=== PATIENT | male | born 1950 | race Caucasian/White ===

== ENCOUNTER 2017-11-09 14:14 | Emergency (ER) | payer OTHER ==
[~2017-11-09] VITALS: Ht 172.7 cm; Wt 90.7 kg
[2017-11-09] MEDS ORDERED: CLARITIN10 M2 PO (14:35)
[2017-11-09] MEDS ORDERED: NORCO 5-325 TA1 EACH PO (15:35)
== END 2017-11-09 15:50 | disposition home or self-care (01) ==
LOC: ED 14:14
PROC: 2W3NX1Z Immobilization of Right Upper Leg using Splint (ICD-10-PCS; principal; 2017-11-09)
DX: S76.111A Strain of right quadriceps muscle, fascia and tendon, initial encounter (principal); Z88.1 Allergy status to other antibiotic agents; W19.XXXA Unspecified fall, initial encounter
CPT/HCPCS: 29505; 73560; 96374; 99283; J1170

== ENCOUNTER 2017-11-19 05:45 | Day surgery (SDC) | payer OTHER ==
[~2017-11-19] VITALS: Ht 172.7 cm; Wt 90.7 kg
[~2017-11-19 05:45] MED LIST: CLARITIN10 M2 PO; NORCO 5-325 TA1 EACH PO
[2017-11-19] MEDS ORDERED: OXYCODONE HCL5 MG PO (08:13)
[2017-11-19] MEDS ORDERED: NEURONTIN300 MG PO (08:14)
--- NOTE | 2017-11-19 08:39 | NUR ---
11/19/17 0839 Naomi Meier 0807 PT ARRIVED WITH ORAL AIRWAY IN PLACE, RESP EVEN AND UNLABORED. PT NON AROUSABLE. O2 MASK ON AT 8L 0814 PT WOKE UP TO TACTILE STIMULI AND ORAL AIRWAY WAS REMOVED. O2 DECREASED TO 6L VIA MASK. PT BACK TO SLEEP. PT REPORTS NO NUMBNESS IN RIGHT FOOT. 0822 PT WOKE UP TO VERBAL STIMULI AND O2 WAS REMOVED. O2 SAT 100%. CYRO CUFF AND RIGHT LEG ELEVATED. PT DENIES PAIN AND NAUSEA. PT MORE AWAKE AND REPORTS RIGHT FOOT IS NUMB.
--- NOTE | 2017-11-19 09:29 | NUR ---
voids 350mls yellow urine per urinal.
[2017-11-19] MEDS ORDERED: PERCOCET 5-3251 EACH PO (09:50)
--- NOTE | 2017-11-26 07:14 | OR ---
[facility] [address] [place], [place] [address] Signed DATE OF OPERATION: 11/19/2017 SURGEON: Mirlande Alicea MD PREOPERATIVE DIAGNOSIS: Right quad tendon rupture. POSTOPERATIVE DIAGNOSIS: Right quad tendon rupture. PROCEDURE PERFORMED: Right quad tendon repair. ANESTHESIA: General. MOLD MAKING SUPERVISOR: Radha Grey PA-C. Radha was present in critical positioning, retraction, and wound closure. TOURNIQUET TIME: 25 minutes. BRIEF HISTORY: Eliseo is a 66-year-old gentleman who suffered an injury to his leg and ruptured his quad tendon. Ultrasound confirmed this. Risks and benefits of operative repair were discussed with him and he elected to proceed. DESCRIPTION OF PROCEDURE: Once consent was obtained, he was taken to the operating room. After adequate anesthesia, he was placed on the operating room table. All downside pressure points were well padded. A well-padded proximal thigh tourniquet was placed. The leg was then prepped and draped in a standard sterile fashion and exsanguinated using an Esmarch bandage. Tourniquet inflated to 275 mmHg. Standard anterior approach through a straight incision was taken through skin and subcutaneous tissue and down to the quad tendon. The rupture was quite easily identified. Subcutaneous flaps were developed mediolaterally. The soft tissue and scar tissue on the patella were removed sharply down to bleeding bony base. The distal end of the tendon was then sharply debrided and any loose or necrotic tissue was removed. The patella was noted to be completely intact. Using a #5 FiberWire suture, we did a running Krackow stitch placing four Electronically Signed By: MIRLANDE ALICEA MD 11/26/17 0714 PATIENT NAME: ELISEO JOLLY OPERATIVE REPORT DATE OF : 50 REPORT #: [id number] PHYSICIAN: MIRLANDE ALICEA MD PCP: ANALISA SARGENT MD REPORT IS CONFIDENTIAL AND NOT TO BE RELEASED WITHOUT AUTHORIZATION [facility] [address] [place], [place] [address] Signed stitches in the tendon itself tendon. Three drill holes were placed in the patella, center drill hole, one lateral and one medial. Using a suture shuttle, the suture ends were shuttled through the drill holes and brought out the bottom. The tendon was then tied snugly to the top of the patella. The retinacular disruption and peritenon were then all repaired using #2 FiberWire suture with an excellent repair obtained. Up to 60 degrees, there was no motion at the repair site. The suture ends distally were then tied to each other and cut and welded with the cautery. The wound was copiously irrigated with antibiotic solution and closed with 0 Stratafix and violeta. The wound was dressed with Mepilex Ag dressing, ABD and Kailash wrap. He was placed back into his hinged knee brace at 0 and 30 degrees. He will be toe-touch weightbearing. Continue this for another six weeks. He was taken to the recovery room in satisfactory condition. All sponge, needle, and instrument counts were correct. Mirlande Alicea MD BA/MODL /[id number] Copies: ~ Electronically Signed By: MIRLANDE ALICEA MD 11/26/17 0714 PATIENT NAME: ELISEO JOLLY OPERATIVE REPORT DATE OF : 50 REPORT #: [id number] PHYSICIAN: MIRLANDE ALICEA MD PCP: ANALISA SARGENT MD REPORT IS CONFIDENTIAL AND NOT TO BE RELEASED WITHOUT AUTHORIZATION
== END 2017-11-19 11:05 | disposition home or self-care (01) ==
LOC: DS 05:45 → OPS 05:45 → DS 06:45 → OPS 11:05
PROVIDERS: Specialist
PROC: 0LQL0ZZ Repair Right Upper Leg Tendon, Open Approach (ICD-10-PCS; principal; 2017-11-19 06:45)
DX: S76.111A Strain of right quadriceps muscle, fascia and tendon, initial encounter (principal); I10 Essential (primary) hypertension; E78.5 Hyperlipidemia, unspecified; X58.XXXA Exposure to other specified factors, initial encounter
CPT/HCPCS: 01250; 64447; 76942; J0690; J1100; J1885; J2250; J2405; J2704; J2795; J3010; J7120

== ENCOUNTER 2019-11-27 07:00 | Day surgery (SDC) | payer OTHER ==
[~2019-11-27] VITALS: Ht 172.7 cm; Wt 89.4 kg
[~2019-11-27 07:00] MED LIST changes: +FLOMAX0.4 MG PO; +NEURONTIN300 MG PO; +OXYCODONE HCL5 MG PO; +PERCOCET 5-3251 EACH PO
--- NOTE | 2019-11-27 08:57 | NUR ---
11/27/19 0857 Omar Gao DOES NOT RESPOND TO TAP AND VOICE ON ENTRY TO PACU. RESPONSIVE BY 0855 BUT CANNOT STAY AWAKE LONG ENOUGH TO ANSWER QUESTIONS.
--- NOTE | 2019-11-27 10:24 | OR ---
[facility] [address] [place], [place] [address] Signed DATE OF OPERATION: 11/27/2019 SURGEON: Sebastian Ochoa MD PREOPERATIVE DIAGNOSES: 1. Screening. 2. Diverticulosis. POSTOPERATIVE DIAGNOSES: 1. Minimal sigmoid diverticulosis. 2. Small to moderate sized internal anal skin tag x1. 3. A 4 mm polyp at 85 cm (distal transverse colon). PROCEDURE: Colonoscopy without biopsy. ESTIMATED BLOOD LOSS: None. INDICATIONS: Eliseo is a 68-year-old gentleman, who underwent a screening colonoscopy back in 2008. He had minimal sigmoid diverticulosis. He has no lower GI complaints currently. There is no family history of colon cancer or polyps. I gave him a pamphlet on colonoscopy. We looked at that together along with the risks including, but not limited to gas bloating, crampy abdominal pain, bleeding, perforation requiring surgery, and missed diagnosis. We also discussed the need for IV conscious sedation. He had expressed understanding and wished to proceed. DESCRIPTION OF PROCEDURE: Eliseo was taken into our endoscopy suite and placed in the left lateral decubitus position. He was given 8 mg of Versed and 175 mcg of fentanyl. A digital rectal exam was performed and he does have a moderately indurated and moderately enlarged prostate gland. The adult colonoscope was introduced and advanced under direct visualization of the camera. He took a little extra sedation and abdominal compression in order to advance the scope directly into the cecum itself. We could easily see the appendiceal orifice and the ileocecal valve. His prep was excellent. The scope was slowly withdrawn. We did see a polypoid lesion back at 85 cm. It was easily removed with the help of hot biopsy forceps. He had just a few diverticula in the sigmoid colon. They were minimal to moderate in size, minimal in number and scattered about. The rectum was unremarkable. Upon retroflexion of scope, he has a single internal anal skin tag. Electronically Signed By: SEBASTIAN OCHOA MD 11/27/19 1024 PATIENT NAME: ELISEO JOLLY OPERATIVE REPORT DATE OF : 50 REPORT #: [id number] PHYSICIAN: SEBASTIAN OCHOA MD PCP: ANALISA SARGENT MD REPORT IS CONFIDENTIAL AND NOT TO BE RELEASED WITHOUT AUTHORIZATION [facility] [address] [place], [place] [address] Signed After this, the gas was suctioned out and the colonoscope removed. Eliseo tolerated procedure quite well. RECOMMENDATIONS: I will see Eliseo back in my office in 7 to 14 days to review his results. Sebastian Ochoa MD ALB/MODL /[id number] cc: MD Analisa Ferrari MD Copies: SEBASTIAN OCHOA MD, RUSSELL BARR MD ~ Electronically Signed By: SEBASTIAN OCHOA MD 11/27/19 1024 PATIENT NAME: ELISEO JOLLY OPERATIVE REPORT DATE OF : 50 REPORT #: [id number] PHYSICIAN: SEBASTIAN OCHOA MD PCP: ANALISA SARGENT MD REPORT IS CONFIDENTIAL AND NOT TO BE RELEASED WITHOUT AUTHORIZATION
--- NOTE | 2019-11-28 15:00 | PATH ---
[facility] [address] [place], [place] [address] Signed SPECIMEN(S): A DISTAL TRANSVERSE POLYP SPECIMEN SOURCE: A. DISTAL TRANSVERSE POLYP CLINICAL HISTORY: Surveillance colonoscopy, last colonoscopy in 2008, history of diverticulosis. MICROSCOPIC DESCRIPTION: Histologic sections of all submitted blocks are examined by light microscopy. These findings, together with the gross examination, support the pathologic diagnosis. FINAL PATHOLOGIC DIAGNOSIS: Colon, distal transverse, polyp, polypectomy: - Colonic mucosa with cautery artifact, see comment. - Negative for high-grade dysplasia or malignancy. COMMENT: Multiple additional deeper levels are examined. The extent of cautery artifact present precludes definitive evaluation for focal low-grade dysplasia. Clinical correlation is required. NAL:caw:C GROSS DESCRIPTION: The specimen, labeled "KP, 1," and designated on the requisition "distal transverse," is received in formalin and consists of one miller soft tissue fragment that measures 0.3 cm in greatest dimension. The specimen is entirely submitted in cassette (A1). AT (under the direct supervision of a pathologist) The Gross Description was prepared using a voice recognition system. The report was reviewed for accuracy; however, sound-alike word errors, addition and/or deletions may occur. If there is any question about this report, please contact Client Services. PERFORMING LABORATORY: The technical component was performed by [address] [facility], [address] [place] [id number] (User Experience Architect: Susan Butt MD; CLIA# [id number]). [facility] [address] [address] (CLIA# [id number]). PATIENT NAME: SEMAJ JOLLY PATHOLOGY DATE OF : 50 REPORT #: [id number] PHYSICIAN: [facility] PCP: ANALISA SARGENT MD REPORT IS CONFIDENTIAL AND NOT TO BE RELEASED WITHOUT AUTHORIZATION [address], [place] [address] Signed Diagnostician: Mari Rose MD Pathologist Electronically Signed 11/28/2019 Copies: ~ PATIENT NAME: SEMAJ JOLLY PATHOLOGY DATE OF : 50 REPORT #: [id number] PHYSICIAN: [facility] PCP: ANALISA SARGENT MD REPORT IS CONFIDENTIAL AND NOT TO BE RELEASED WITHOUT AUTHORIZATION
== END 2019-11-27 10:00 | disposition home or self-care (01) ==
LOC: OPS 07:00 → DS 07:00 → OPS 08:15
PROVIDERS: Colon & Rectal Surgery
PROC: 0DBL8ZZ Excision of Transverse Colon, Via Natural or Artificial Opening Endoscopic (ICD-10-PCS; principal; 2019-11-27 08:15)
DX: Z12.11 Encounter for screening for malignant neoplasm of colon (principal); K64.8 Other hemorrhoids; K64.4 Residual hemorrhoidal skin tags; K57.30 Diverticulosis of large intestine without perforation or abscess without bleeding; I10 Essential (primary) hypertension; K21.9 Gastro-esophageal reflux disease without esophagitis; E78.5 Hyperlipidemia, unspecified; Z79.899 Other long term (current) drug therapy
CPT/HCPCS: 99153; G0500; J2250; J3010; J7121

== ENCOUNTER → 2022-12-26 | Emergency (ER) | payer OTHER ==
[~2022-12-26] VITALS: Ht 172.7 cm; Wt 89.4 kg
[~2022-12-26] MED LIST changes: +ATORVASTATIN CA20 MG PO; +LOSARTAN POTASS50 MG PO
[2022-12-26 18:59] VITALS: BP 130/77
== END ==
LOC: ED 12:38
DX: K42.9 Umbilical hernia without obstruction or gangrene (principal); Z88.8 Allergy status to other drugs, medicaments and biological substances; Z79.899 Other long term (current) drug therapy
CPT/HCPCS: 99283

== ENCOUNTER 2023-02-08 05:55 | Day surgery (SDC) | payer OTHER ==
[2023-01-31 08:18] VITALS: BP 148/82
[~2023-02-08] VITALS: Ht 172.7 cm; Wt 90.9 kg
[2023-02-08 06:14] VITALS: BP 156/84
[2023-02-08] MEDS ORDERED: TYLENOL EXTRA500 MG PO (06:19)
--- NOTE | 2023-02-08 07:22 | NUR ---
PT IN GOOD SPIRITS. CONSENTED TO PRAYER. PRAYED FOR SUCCESSFUL PROCEDURE AND AWARENESS OF DIVINE PRESENCE.
--- NOTE | 2023-02-08 08:47 | NUR ---
02/08/23 0847 Abena Alejandro 0836-PATIENT ARRIVED TO PACU ON 6L MASK RR EVEN. PATIENT REACTIVE TO VERBAL STIMULI SLIGHTLY OPENING EYES NOT FOLLOWING COMMANDS. PATIENT DOES HAVE SLEEP APNEA. DRESSING TO UMBILICAL SMALL AMT OF DRAINAGE ON SIDE. SR 0845-PATIENT AROUSES EASILY DROWSY DENIES PAIN OR NAUSEA. PLACED ON RA RR EVEN 100%.
[2023-02-08] MEDS ORDERED: HYDROCODON-ACE1 EA10 PO (08:50)
[2023-02-08] MEDS ORDERED: IBUPROFEN600 MG PO (08:50)
[2023-02-08] MEDS ORDERED: ACETAMINOPHEN500 MG PO (08:50)
[2023-02-08 09:07] VITALS: BP 147/70
--- NOTE | 2023-02-08 09:10 | NUR ---
LE 0910: PT IS BACK TO DS FROM PACU. HE IS BACK TO HIS BASELINE. HE IS REPORTING NO PAIN. TOLERATING WATER AT THIS TIME. CALL LIGHT IS WITHIN REACH. PT WOULD LIKE SOME SALTINES. DC CRITERIA IS REVIEWED.
--- NOTE | 2023-02-08 09:59 | NUR ---
VIKI 0950: PT IS UP OOB TO THE BATHROOM. HE AMBULATES WITHOUT ISSUES TO AND FROM THE BATHROOM. HE IS ABLE TO VOID 200MLS OF DARK YELLOW URINE. HE IS GIVEN MORE WATER AND JELLO.
[2023-02-08 10:17] VITALS: BP 157/69
--- NOTE | 2023-02-08 10:45 | NUR ---
LE 1020: PT IS GIVEN VERBAL AND WRITTEN DC INSTRUCTIONS. PT VERBALIZES UNDERSTANDING. NO QUESTIONS AT THIS TIME. HE IS EDUCATED ON HOW TO BEST DRESS HIMSELF AND TO OPEN HIS CURTAIN WHEN HE IS READY. LE 1025: PT STOPS AT THE RESTROOM ONE MORE TIME BEFORE BEING TAKEN TO PERSONAL VEHICLE VIA WC. HE IS ABLE TO TRANSFER HIMSELF FROM THE WC TO THE CAR.
--- NOTE | 2023-02-08 14:11 | OR ---
[facility] [address] [place], [place] [address] Signed DATE OF OPERATION: 02/08/2023 SURGEON: Jameson Boo MD PREOPERATIVE DIAGNOSIS: Symptomatic incarcerated umbilical hernia. POSTOPERATIVE DIAGNOSIS: Symptomatic incarcerated umbilical hernia, fascial defect less than 4 cm. PROCEDURES: 1. Repair of incarcerated umbilical hernia, less than 4 cm. 2. Implantation of Prolene mesh underlay technique. ANESTHESIA: General LMA by Tawanda Nichols CRNA and local 20 mL of 0.25% Marcaine with epinephrine. INDICATION: This 72-year-old white man is a patient of Dr. Analisa Banda. He presented to the emergency room on December 26, 2022 with complaints of a mass in the region of the umbilicus which was painful. He was found to have an incarcerated hernia. With supine positioning and time, he was able to have reduction of the hernia. This was related to a lifting episode. Evaluation in the office on January 15, 2023 showed generally reducible umbilical hernia though residual incomplete reduction noted as well. He was admitted at this time to undergo repair of the incarcerated hernia, understands the risk of bleeding, infection, recurrence and so on. FINDINGS: Herniated properitoneal fat was noted. Much of the hernia was able to be reduced with a portion was not, which included some omentum. Ultimately complete reduction of the hernia sac and its contents was undertaken. Repair consisted of implantation of Prolene mesh in the properitoneal space with transverse reapproximation of the fascial layer. The fascial defect was between 2 and 4 cm in aggregate. There were no complications at operation. PROCEDURE IN DETAIL: The patient was brought to the operating room, given a general LMA type anesthetic. Preoperative antibiotic Ancef was given. Sequential compression device stockings used and heparin subcutaneously administered. Abdominal examination was undertaken showing the herniated area with incomplete reduction. The abdomen was then clipped and prepared Electronically Signed By: JAMESON BOO MD 02/08/23 1411 PATIENT NAME: SEMAJ JOLLY OPERATIVE REPORT DATE OF : 50 REPORT #: [id number] PHYSICIAN: JAMESON BOO MD PCP: ANALISA BANDA MD REPORT IS CONFIDENTIAL AND NOT TO BE RELEASED WITHOUT AUTHORIZATION [facility] [address] [place], [place] [address] Signed with chlorhexidine solution and draped sterilely. A curvilinear incision was made lateral to the umbilical fold. Dissection carried through it using sharp electrocautery dissection. The herniated viscus contained fat it appeared. The sac with the overlying dermis was freed with electrocautery and blunt dissection. Circumferential freeing of the hernia sac from the fascial layer was undertaken. Ultimately the hernia contents, which included omentum and properitoneal fat was reduced to the properitoneal space. Using blunt dissection circumferentially, development of the preperitoneal space was undertaken at least 2-3 cm all around. The fascial defect was measured approximately 3 cm, nearly 4 in longest dimension. The segment of Prolene mesh was cut to a circular configuration and secured to the properitoneal space with interrupted 0 Prolene suture. The fascia was then approximated transversely over the fascia with interrupted 0 Prolene in a vertical mattress configuration. 20 mL of 0.25% Marcaine with epinephrine was injected locally. Hemostasis was assured with electrocautery. Ml layer was reapproximated with interrupted 2-0 Vicryl and the skin closed with running subcuticular 3-0 Vicryl. Steri-Strips were applied. An Acticoat dressing was then applied. The patient was ultimately extubated and transferred to the recovery room in good condition having suffered no complications. Sponge, needle, and instrument counts were reported as correct x3. Jameson Boo MD /MODL /[id number] cc: Analisa Banda MD Copies: ANALISA BANDA MD ~ Electronically Signed By: JAMESON BOO MD 02/08/23 1411 PATIENT NAME: SEMAJ JOLLY OPERATIVE REPORT DATE OF : 50 REPORT #: [id number] PHYSICIAN: JAMESON BOO MD PCP: ANALISA BANDA MD REPORT IS CONFIDENTIAL AND NOT TO BE RELEASED WITHOUT AUTHORIZATION
--- NOTE | 2023-02-08 20:04 | EKG ---
[facility] [address] [facility] [place] [address] Signed Normal sinus rhythm Normal ECG When compared with ECG of 15-NOV-2017 15:31, Nonspecific T wave abnormality has replaced inverted T waves in Inferior leads Nonspecific T wave abnormality no longer evident in Lateral leads Confirmed by JAMES HSU MD ([id number]) on 02/08/2023 8:04:09 PM Electronically Signed By: JAMES HSU 02/08/23 2004 PATIENT NAME: TOMOVISEMAJ Electrocardiogram DATE OF : 50 PHYSICIAN: JAMES HSU REPORT #: [id number] REPORT IS CONFIDENTIAL AND NOT TO BE RELEASED WITHOUT AUTHORIZATION
== END 2023-02-08 10:25 | disposition home or self-care (01) ==
LOC: DS 05:55
PROVIDERS: ATTEND Surgery
PROC: 0WUF0JZ Supplement Abdominal Wall with Synthetic Substitute, Open Approach (ICD-10-PCS; principal; 2023-02-08 07:30)
DX: K42.0 Umbilical hernia with obstruction, without gangrene (principal); I10 Essential (primary) hypertension; N40.0 Benign prostatic hyperplasia without lower urinary tract symptoms; E78.5 Hyperlipidemia, unspecified; Z79.899 Other long term (current) drug therapy
CPT/HCPCS: 00750; 93005; 93010; C1781; J0131; J0690; J1100; J1644; J1885; J2001; J2704; J3475; J3490; J7121